=== PATIENT | female | born 1980 | race Caucasian/White ===

== ENCOUNTER 2017-02-16 23:38 | Emergency (ER) | payer SELFPAY ==
[~2017-02-16] VITALS: Ht 175.3 cm; Wt 127.0 kg
--- OUTSIDE RECORDS SUMMARY | 2017-02-16 23:46 | XMS REPORT | Continuity of Care Document ---
Author Author [facility] Organization [facility] Address Unknown Phone Unavailable Allergies Active Description Code Type Severity Reaction Onset Reported/Identified Relationship to Patient Clinical Status Yes codeine [id number] Drug Allergy Unknown N/A 09/04/2005 Medications Problems Date Dx Coded Attending Type Code Diagnosis Diagnosed By 06/06/2012 311 DEPRESSIVE DISORDER NOS 06/06/2012 780.2 SYNCOPE 06/06/2012 780.79 fatigue 06/06/2012 785.1 PALPITATIONS 06/06/2012 V18.0 FAMILY HISTORY OF DIABETES MELLITUS 06/06/2012 V70.0 EXAM - ROUTINE H&P 06/06/2012 311 DEPRESSIVE DISORDER NOS 06/06/2012 780.2 SYNCOPE 06/06/2012 780.79 fatigue 06/06/2012 785.1 PALPITATIONS 06/06/2012 V18.0 FAMILY HISTORY OF DIABETES MELLITUS 06/06/2012 V70.0 EXAM - ROUTINE H&P 06/06/2012 311 DEPRESSIVE DISORDER NOS 06/06/2012 780.2 SYNCOPE 06/06/2012 780.79 fatigue 06/06/2012 785.1 PALPITATIONS 06/06/2012 V18.0 FAMILY HISTORY OF DIABETES MELLITUS 06/06/2012 V70.0 EXAM - ROUTINE H&P 06/06/2012 GREGOR YAÑEZ DO 311 DEPRESSIVE DISORDER NOS 06/06/2012 GREGOR YAÑEZ DO 780.2 SYNCOPE 06/06/2012 GREGOR YAÑEZ DO 780.79 fatigue 06/06/2012 GREGOR YAÑEZ DO 785.1 PALPITATIONS 06/06/2012 GREGOR YAÑEZ DO V18.0 FAMILY HISTORY OF DIABETES MELLITUS 06/06/2012 GREGOR YAÑEZ DO V70.0 EXAM - ROUTINE H&P 06/06/2012 TONEY NEVES APRN 311 DEPRESSIVE DISORDER NOS 06/06/2012 TONEY NEVES APRN R 780.2 SYNCOPE 06/06/2012 TONEY NEVES APRN R 780.79 fatigue 06/06/2012 TONEY NEVES APRN R 785.1 PALPITATIONS 06/06/2012 PATTIE NEVES APRNIA R V18.0 FAMILY HISTORY OF DIABETES MELLITUS 06/06/2012 TONEY NEVES APRN R V70.0 EXAM - ROUTINE H&P 06/06/2012 SAEID SALCIDO APRN 311 DEPRESSIVE DISORDER NOS 06/06/2012 SAEID SALCIDO APRN 780.2 SYNCOPE 06/06/2012 SAEID SALCIDO APRN 780.79 fatigue 06/06/2012 SAEID SALCIDO APRN 785.1 PALPITATIONS 06/06/2012 SAEID SALCIDO APRN V18.0 FAMILY HISTORY OF DIABETES MELLITUS 06/06/2012 SAEID SALCIDO APRN V70.0 EXAM - ROUTINE H&P 06/06/2012 GREGOR YAÑEZ DO K 311 DEPRESSIVE DISORDER NOS 06/06/2012 GREGOR YAÑEZ DO K 780.2 SYNCOPE 06/06/2012 BELÉN YAÑEZ DOA K 780.79 FATIGUE 06/06/2012 GREGOR YAÑEZ DO K 785.1 PALPITATIONS 06/06/2012 GREGOR YAÑEZ DO K V18.0 FAMILY HISTORY OF DIABETES MELLITUS 06/06/2012 BELÉN YAÑEZ DOA K V70.0 EXAM - ROUTINE H&P 09/16/2012 Ot 780.2 SYNCOPE AND COLLAPSE 09/16/2012 Ot 785.1 PALPITATIONS 09/24/2012 611.79 OTHER SIGNS AND SYMPTOMS IN BREAST 09/24/2012 724.79 OTHER DISORDERS OF COCCYX 09/24/2012 BELÉN YAÑEZ DOA K 611.79 OTHER SIGNS AND SYMPTOMS IN BREAST 09/24/2012 BELÉN YAÑEZ DOA K 724.79 OTHER DISORDERS OF COCCYX 09/24/2012 TONEY NEVES APRN R 611.79 OTHER SIGNS AND SYMPTOMS IN BREAST 09/24/2012 TONEY NEVES APRN R 724.79 OTHER DISORDERS OF COCCYX 09/24/2012 SAEID SALCIDO APRN 611.79 OTHER SIGNS AND SYMPTOMS IN BREAST 09/24/2012 SAEID SALCIDO APRN 724.79 OTHER DISORDERS OF COCCYX 09/24/2012 BELÉN YAÑEZ DOA K 611.79 OTHER SIGNS AND SYMPTOMS IN BREAST 09/24/2012 BELÉN YAÑEZ DOA K 724.79 OTHER DISORDERS OF COCCYX 03/24/2013 GUI TRIPP Ot 724.6 DISORDERS OF SACRUM 03/24/2013 GUI TRIPP [employer] Ot 724.79 DISORDER OF COCCYX NEC 03/24/2013 GUI TRIPP [facility] Ot V57.1 PHYSICAL THERAPY NEC 09/25/2013 TONEY NEVES APRN 919.4 INSECT BITE NONVENOMOUS OF OTHER MULTIPLE AND UNSPECIFIED SITES WITHOUT INFECTION 09/25/2013 SAEID SALCIDO APRN 919.4 INSECT BITE NONVENOMOUS OF OTHER MULTIPLE AND UNSPECIFIED SITES WITHOUT INFECTION 09/25/2013 GREGOR YAÑEZ DO 919.4 INSECT BITE NONVENOMOUS OF OTHER MULTIPLE AND UNSPECIFIED SITES WITHOUT INFECTION 09/27/2013 SAEID SALICDO APRN 692.9 DERMATITIS CONTACT UNSPECIFIED 09/27/2013 GREGOR YAÑEZ DO 692.9 DERMATITIS CONTACT UNSPECIFIED 10/30/2013 GREGOR YAÑEZ DO 729.82 CRAMP OF LIMB 10/30/2013 GREGOR YAÑEZ DO V06.1 TDAP DX 02/16/2017 Ot 780.2 SYNCOPE AND COLLAPSE 02/16/2017 Ot 785.1 PALPITATIONS Procedures Code Description [place] [address] ROUTINE VENIPUNCTURE 06/06/2012 71845 A1C (IN-HOUSE) 51562 ESR/SED RATE 56737 CBC 06/06/2012 08648 CMP 06/06/2012 06362 LIPID PANEL 06/06 9841229 GFR CALC (RESULT ONLY) 06/06/2012 48942 TSH 06/06/2012 70685 INSULIN LEVEL 27765 HOLTER MONITOR PHYSICAL PHYSICAL THERAPY, [facility] 02/13/2013 J1040 DEPO MEDROL 80 MG INJ 09/25/2013 61745 THERAPUTIC INJ SQ/IM 09/25/2013 J2930 SOLUMEDROL INJ 03782 THERAPUTIC INJ SQ/IM 09/27/2013 78104 ROUTINE VENIPUNCTURE 10/30/2013 [id number] GFR CALC (RESULT ONLY) 10/30/2013 25228 BMP 10/30/2013 Results Encounters ACCT No. Visit Date/Time Discharge Status Pt. Type Provider Facility Loc./Unit Complaint [id number] 02/26/2013 09:38:00 2013 13:05:00 DIS Outpatient GUI TRIPP [facility] REHAB SACROILIAC DYSFUNCTION WITH COCCYDYNIA [id number] 02/16/2017 23:42:00 ACT Emergency DEL MAHONEY SERAFIN Nereyda [facility] ER FEELS LIKE BEING CHOKED IN NECK-PER PT NO INJURY [id number] 09/17/2012 09:00:00 Document Registration [id number] 06/18/2012 09:08:00 Document Registration [id number] 10/30/2013 12:55:00 10/30/2013 23: 59:59 CLS Outpatient GREGOR YAÑEZ DO [id number] 09/27/2013 11:00:00 09/27/2013 23: 59:59 CLS Outpatient SAEID SALCIDO APRN [id number] 09/25/2013 17:55:00 09/25/2013 23: 59:59 CLS Outpatient TONEY NEVES APRN [id number] 02/13/2013 14:49:00 02/13/2013 23: 59:59 CLS Outpatient GREGOR YAÑEZ DO [id number] 06/06/2012 10:53:00 06/06/2012 23: 59:59 CLS Outpatient [id number] 09/24/2012 08:27:00 Document Registration [id number] 06/20/2012 11:16:00 Document Registration
[2017-02-17 01:10] LABS: BASOPHILS # (AUTO) 0.1 10^3/uL (0.0-0.1); BASOPHILS % (AUTO) 1 % (0-10); EOSINOPHILS # (AUTO) 0.2 10^3/uL (0.0-0.3); EOSINOPHILS % (AUTO) 2 % (0-10); LYMPHOCYTES # (AUTO) 2.2 X 10^3 (1.0-4.0); LYMPHOCYTES % (AUTO) 29 % (12-44); MEAN CORPUSCULAR HEMOGLOBIN 30 PG (25-34); MEAN CORPUSCULAR HGB CONC 33 G/DL (32-36); MEAN CORPUSCULAR VOLUME 89 FL (80-99); MEAN PLATELET VOLUME 11.9 FL (7.4-10.4); MONOCYTES # (AUTO) 0.8 X 10^3 (0.0-1.0); MONOCYTES % (AUTO) 10 % (0-12); NEUTROPHILS # (AUTO) 4.3 X 10^3 (1.8-7.8); NEUTROPHILS % (AUTO) 58 % (42-75); PLATELET COUNT 140 10^3/uL (130-400); RED BLOOD COUNT 4.48 10^6/uL (4.35-5.85); RED CELL DISTRIBUTION WIDTH 13.4 % (10.0-14.5); WHITE BLOOD COUNT 7.5 10^3/uL (4.3-11.0)
[2017-02-17 01:33] LABS: ALANINE AMINOTRANSFERASE 21 U/L (0-55); ALBUMIN 4.1 GM/DL (3.2-4.5); ANION GAP 10 MMOL/L (5-14); ASPARTATE AMINO TRANSFERASE 21 U/L (5-34); BILIRUBIN,TOTAL 0.5 MG/DL (0.1-1.0); BLOOD UREA NITROGEN 10 MG/DL (7-18); BUN/CREATININE RATIO 12; CALCIUM 8.9 MG/DL (8.5-10.1); CARBON DIOXIDE 22 MMOL/L (21-32); CHLORIDE 108 MMOL/L (98-107); CREATININE SERUM 0.86 MG/DL (0.60-1.30); GFR ESTIMATED > 60; GLUCOSE 113 MG/DL (70-105); SODIUM 140 MMOL/L (135-145)
[2017-02-17] MEDS ORDERED: IOHEXOL 350 MG/ML 100 ML (OMNIPAQUE 350) VIAL IV ONE (02:00)
[2017-02-17] MEDS ORDERED: NS 100 ML (IVPB) BAG IV ONE (02:00)
[2017-02-17] MEDS ORDERED: RX-HYDROXYZINE PAMOATE 25 MG CAP #4 PO STA (02:39)
[2017-02-17] MEDS ORDERED: HYDR50CA PO (02:42)
--- NOTE | 2017-02-17 02:42 | ED General ---
General Chief Complaint: Head/Cervical Problems Stated Complaint: FEELS LIKE BEING CHOKED IN NECK-PER PT NO INJURY Nursing Triage Note: head pressure x3 days Nursing Sepsis Screen: No Definite Risk Allergies and Home Medications Allergies Coded Allergies: codeine (Verified Allergy, Unknown, 12/19/13) Past Ycggixp-Agevuy-Vcrhht Hx Patient Social History Alcohol Use: Denies Use Recreational Drug Use: No Smoking Status: Current Someday Smoker Type Used: Cigarettes 2nd Hand Smoke Exposure: Yes Recent Foreign Travel: No Contact w/Someone Who Travel: No Recent Infectious Disease Expo: No Recent Hopitalizations: No Immunizations Up To Date Tetanus Booster (TDap): Unknown PED Vaccines UTD: Yes Seasonal Allergies Seasonal Allergies: No Surgeries History of Surgeries: Yes Surgeries: Gallbladder, Hysterectomy, Orthopedic, Tubal Ligation Respiratory History of Respiratory Disorde: No Cardiovascular History of Cardiac Disorders: No Neurological History of Neurological Disord: No Reproductive System : No 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, Tubal Ligation Genitourinary History of Genitourinary Disor: No Gastrointestinal History of Gastrointestinal Di: No Musculoskeletal History of Musculoskeletal Dis: No Endocrine History of Endocrine Disorders: No HEENT History of HEENT Disorders: No Cancer History of Cancer: No Psychosocial History of Psychiatric Problem: Yes Behavioral Health Disorders: Depression Integumentary History of Skin or Integumenta: No Blood Transfusions History of Blood Disorders: No Adverse Reaction to a Blood Tr: No Physical Exam Vital Signs Vital Sign - Last 12Hours 02/17/17 00:31 Temp 96.3 Pulse 82 Resp 16 B/P (MAP) 160/91 (114) Pulse Ox 97 O2 Delivery Room Air Capillary Refill : Less Than 3 Seconds Progress/Results/Core Measures Suspected Sepsis Recent Fever Within 48 Hours: No Infection Criteria Present: None New/Unexplained Altered Menta: No Sepsis Screen: No Definite Risk Sepsis Diagnosis: SIRS Temperature:96.3 Pulse: 82 Respiratory Rate: 16 Laboratory Tests 02/17/17 01:00: White Blood Count 7.5 Blood Pressure 160 /91 Mean: 114 Laboratory Tests 02/17/17 01:00: Creatinine 0.86, Platelet Count 140, Total Bilirubin 0.5 Results/Orders Lab Results Laboratory Tests Test 02/17/17 01:00 Range/Units White Blood Count 7.5 4.3-11.0 10^3/uL Red Blood Count 4.48 4.35-5.85 10^6/uL Hemoglobin 13.3 11.5-16.0 G/DL Hematocrit 40 35-52 % Mean Corpuscular Volume 89 80-99 FL Mean Corpuscular Hemoglobin 30 25-34 PG Mean Corpuscular Hemoglobin Concent 33 32-36 G/DL Red Cell Distribution Width 13.4 10.0-14.5 % Platelet Count 140 130-400 10^3/uL Mean Platelet Volume 11.9 H 7.4-10.4 FL Neutrophils (%) (Auto) 58 42-75 % Lymphocytes (%) (Auto) 29 12-44 % Monocytes (%) (Auto) 10 0-12 % Eosinophils (%) (Auto) 2 0-10 % Basophils (%) (Auto) 1 0-10 % Neutrophils # (Auto) 4.3 1.8-7.8 X 10^3 Lymphocytes # (Auto) 2.2 1.0-4.0 X 10^3 Monocytes # (Auto) 0.8 0.0-1.0 X 10^3 Eosinophils # (Auto) 0.2 0.0-0.3 10^3/uL Basophils # (Auto) 0.1 0.0-0.1 10^3/uL Sodium Level 140 135-145 MMOL/L Potassium Level 4.0 3.6-5.0 MMOL/L Chloride Level 108 H 98-107 MMOL/L Carbon Dioxide Level 22 21-32 MMOL/L Anion Gap 10 5-14 MMOL/L Blood Urea Nitrogen 10 7-18 MG/DL Creatinine 0.86 0.60-1.30 MG/DL Estimat Glomerular Filtration Rate > 60 BUN/Creatinine Ratio 12 Glucose Level 113 H 70-105 MG/DL Calcium Level 8.9 8.5-10.1 MG/DL Total Bilirubin 0.5 0.1-1.0 MG/DL Aspartate Amino Transf (AST/SGOT) 21 5-34 U/L Alanine Aminotransferase (ALT/SGPT) 21 0-55 U/L Alkaline Phosphatase 56 40-136 U/L Total Protein 7.0 6.4-8.2 GM/DL Albumin 4.1 3.2-4.5 GM/DL TSH [place] Testing 3.98 0.35-4.94 UIU/ML My Orders Orders - SERAFIN MATHIS DO Saline Lock/Iv-Start (02/17/17 00:51) Ct Head Wo (02/17/17 00:51) Ct Neck (Soft Tissue) W (02/17/17 00:51) Cbc With Automated Diff (02/17/17 00:51) Comprehensive Metabolic Panel (02/17/17 00:51) Thyroid Analyzer (02/17/17 00:51) Iohexol Injection (Omnipaque 350 Mg/Ml 1 (02/17/17 02:00) Ns (Ivpb) (Sodium Chloride 0.9% Ivpb Bag (02/17/17 02:00) Rx-Hydroxyzine Pamoate (Rx-Vistaril) (02/17/17 02:39) Medications Given in ED Current Medications Medications Dose Ordered Sig/Veronica Route Start Time Stop Time Status Last Admin Dose Admin Iohexol 100 ml ONCE ONCE IV 02/17/17 02:00 02/17/17 02:01 DC 02/17/17 01:56 75 ML Sodium Chloride 100 ml ONCE ONCE IV 02/17/17 02:00 02/17/17 02:01 DC 02/17/17 01:56 80 ML Vital Signs/I&O Vital Sign - Last 12Hours 02/17/17 00:31 Temp 96.3 Pulse 82 Resp 16 B/P (MAP) 160/91 (114) Pulse Ox 97 O2 Delivery Room Air Capillary Refill : Less Than 3 Seconds Blood Pressure Mean: 114 Departure Impression Impression: Primary Impression: Anxiety Disposition: 01 HOME, SELF-CARE Condition: Stable Departure-Patient Inst. Referrals: [facility] (PCP/Family) Primary Care Physician Patient Instructions: Anxiety, Adult (DC) Add. Discharge Instructions: FOLLOW UP WITH [facility] THIS WEEK FOR FURTHER CARE All discharge instructions reviewed with patient and/or family. Voiced understanding. Scripts Hydroxyzine Pamoate (Vistaril) 50 Mg Capsule 50 MG PO Q6H for Anxiety, #20 CAP Prov: SERAFIN MATHIS DO 02/17/17 SERAFIN MATHIS DO Feb 17, 2017 02:42
[2017-02-17] MEDS ORDERED: RX-HYDROXYZINE PAMOATE 25 MG CAP #4 PO ONE (02:44)
[2017-02-17 02:50] VITALS: BP 139/92
--- NOTE | 2017-02-17 06:25 | Diagnostic Imaging Report ---
PROCEDURE: CT head without contrast. TECHNIQUE: Multiple contiguous axial images were obtained through the brain without the use of intravenous contrast. INDICATION: Pressure in head. FINDINGS: The ventricles and cortical gyral pattern are normal. There is no intracranial hemorrhage. No mass effect. No extra-axial fluid collections. Basal cisterns are clear. Mastoid air cells and paranasal sinuses are clear. No calvarial fractures. IMPRESSION: Negative CT head without contrast. These findings are concordant with the preliminary report. Dictated by: Dictated on workstation # [id number]
--- NOTE | 2017-02-17 07:19 | Diagnostic Imaging Report ---
PROCEDURE: CT neck soft tissue with contrast. TECHNIQUE: Multiple contiguous axial images were obtained through the neck after the administration of contrast. DATE: February 17, 2017. INDICATION: 36-year-old female, head and neck pressure and pain for three days. COMPARISON: None. FINDINGS: The visualized portions of the lung apices are grossly clear with likely minimal dependent atelectasis in the upper aspect of the right lower lobe. The right and left parotid glands are unremarkable in appearance. Unremarkable appearance of the bilateral submandibular glands. Unremarkable appearance of the thyroid. There is no identified asymmetric narrowing of the airway or identified mucosal or submucosal mass along the surface of the airway. There are subcentimeter short axis cervical lymph nodes. There is no identified abnormally enlarged lymph node in the neck, which meets CT size criteria for adenopathy. There is incidental note of direct origin of the left vertebral artery off the aortic arch. The orbits are unremarkable in appearance. There is a polypoid lesion in the right maxillary sinus likely relating to a mucus retention cyst. Additional visualized portions of the paranasal sinuses, mastoid air cells, and middle ears are well aerated. There is no identified acute bony abnormality. IMPRESSION: 1. No identified acute abnormality of the neck. Dictated by: Dictated on workstation # [id number]
== END 2017-02-17 02:47 | disposition home or self-care (01) ==
LOC: EDUNIT# 23:38 → ER 23:42
DX: F41.9 Anxiety disorder, unspecified (principal); F32.9 Major depressive disorder, single episode, unspecified; F17.210 Nicotine dependence, cigarettes, uncomplicated; Z90.710 Acquired absence of both cervix and uterus; Z98.51 Tubal ligation status
CPT/HCPCS: 36415; 70450; 70491; 80053; 84443; 85025